=== PATIENT | female | born 1960 | race Caucasian/White ===

== ENCOUNTER → 2020-11-11 03:14 | Outpatient (CLI) | payer OTHER, SELFPAY ==
[2020-11-11 16:17] LABS: SARS-CoV-2 RNA PCR Negative
== END ==
PROVIDERS: PCP Family Medicine; Visit Provider Urology
DX: Z01.812 Encounter for preprocedural laboratory examination (principal); Z20.822 Contact with and (suspected) exposure to COVID-19
CPT/HCPCS: C9803; U0003; U0005

== ENCOUNTER 2020-11-11 07:37 | Outpatient (CLI) | payer OTHER, SELFPAY ==
[2020-11-11 08:32] LABS: INR 0.9
[2020-11-11 08:33] LABS: Partial Thromboplastin Time 28.9 SECONDS (22.3-36.8)
--- NOTE | 2020-11-11 13:30 | ECG_ITS ---
Measurements Intervals Meredith Rate: 66 P: 63 AK: 144 QRS: 31 QRSD: 94 T: 31 QT: 354 QTc: 371 Interpretive Statements SINUS RHYTHM BASELINE ARTIFACT- I, II, III, AVR, AVL, AVF NORMAL ECG Electronically Signed On 11-11-2020 8:22:44 CDT by Jaswinder Fraser D.O.
== END 2020-11-11 07:38 | disposition home or self-care (01) ==
LOC: ANHSURGERY 07:41
PROVIDERS: PCP Family Medicine; Visit Provider Urology
DX: N20.1 Calculus of ureter (principal); I10 Essential (primary) hypertension; Z01.818 Encounter for other preprocedural examination
CPT/HCPCS: 36415; 85610; 85730; 93005

== ENCOUNTER 2020-11-13 04:02 | Day surgery (SDC) | payer OTHER, SELFPAY ==
[2020-11-10 14:37] VITALS: BMI 25.2
--- NOTE | 2020-11-12 12:36 | WPDANESEPPF ---
Anes - Initial Pre Proc Eval Procedure: Operation Date: 11/13/20 12:30 Proposed Procedures p Right Extracorporeal Shock Wave Lithotripsy - Alfa Merrill MD Date/Time: 11/12/20 12:36 Surgeon: Alfa Merrill MD Pre Op Diagnosis: Right UPJ stone Patient Data Age: 60 Gender: F Height: 1.61 m Weight: 65.77 kg Allergies Allergy/AdvReac Type Severity Reaction Status Date / Time indomethacin AdvReac Severe Migraine Verified 11/13/20 10:22 Home Medications Medication Instructions Recorded Confirmed Type levothyroxine 75 mcg PO DAILY 11/10/20 11/13/20 History metoprolol tartrate 25 mg PO DAILY 11/10/20 11/13/20 History multivitamin 1 tablet PO DAILY 11/10/20 11/13/20 History biotin 10,000 mcg PO DAILY 11/13/20 11/13/20 History calcium carbonate-vitamin D3 1 tablet PO DAILY 11/13/20 11/13/20 History [Calcium with Vitamin D] lutein 20 mg PO DAILY 11/13/20 11/13/20 History magnesium 1 tablet PO DAILY 11/13/20 11/13/20 History potassium 75 mg PO DAILY 11/13/20 11/13/20 History Patient hx anesthesia problems: post op nausea/vomiting Family hx anesthesia problems: none PMFSH Past Medical History Medical History (Updated 11/12/20 @ 12:36 by Zoran Bah DO) Hypertension PONV (postoperative nausea and vomiting) Renal stones Rheumatoid arthritis Surgical History Surgical History (Updated 11/12/20 @ 12:36 by Zoran Bah DO) History of appendectomy Social History Social History Smoking status: Never smoker Alcohol intake: current Alcohol use details: 4/YEAR Substance use: never Substance use type: does not use Living arrangements: with family Spiritual care concerns: No Anes - Eval Final PreProcedure Day of Procedure 11/12/20 12:36 Patient weight: overweight Heart: regular rate and rhythm Lungs: clear to auscultation and normal air movement Airway: Mallampati scale class II Neurological: alert and oriented Last oral intake: >/= 8 hours ASA classification: III Emergent: no Anesthetic plan: proceed Anesthesia type and monitoring: general LMA and standard monitoring Informed Consent: The patient's anesthetic plan and its attendant risks and benefits were discussed with the patient/family/POA. Questions were solicited and answers provided to the satisfaction of the patient/family/POA.
[2020-11-13] VITALS (8 sets, daily range): BP systolic 110–160; BP diastolic 65–80; PULSE 61–86; RESP 10–20; TEMP 36.5–36.7; O2SAT 98–100
--- NOTE | ~2020-11-13 | XR_ITS ---
EXAMINATION: XR abdomen/kub 1V DATE: 11/13/2020 10:07 INDICATION: Right kidney stone. TECHNIQUE: A supine view of the abdomen on 2 radiographs was obtained. COMPARISON: Abdomen radiographs 03/15/2013 FINDINGS: There are no dilated loops of bowel. There are phleboliths in the pelvis. There are at leas t 5 stones in right kidney measuring up to 10 mm. IMPRESSION: 1. Right kidney stones. Reviewed, dictated and finalized at location A. IMPRESSION: 1. Right kidney stones.
--- NOTE | 2020-11-13 07:14 | WPDHPUPDATE1 ---
History and Physical Update Update Date/Time: 11/13/20 07:14 History and Physical has been reviewed, including an updated exam of the patient. There are NO changes in the patient's condition. Risks, benefits, and alternatives have been discussed and questions answered. Patient agrees to proceed with procedure.
[2020-11-13] MEDS: LACTATED RINGERS 1,000 ML 30 ML IV CONT ×2 (11:30→14:14)
[2020-11-13] MEDS: SCOPOLAMINE 1.5 MG PATCH TRANSDERM (12:18)
[2020-11-13] MEDS: FAMOTIDINE 20 MG/2 ML VIAL IV PUSH (12:18)
[2020-11-13] MEDS: ceFAZolin 2 GM/D5W 50 ML 2 GM/50 ML BAG IVPB (13:19)
--- NOTE | 2020-11-13 13:41 | P.OP_ITS ---
Procedure Note - Detailed Date of procedure: 11/13/20 Pre-op diagnosis: Right kidney stones Post-op diagnosis: same Procedure performed: Right ESWL Description of procedure: The patient was brought to the operative suite where she was placed in the supine position on the Dornier lithotripsy table. The focal point of the lithotripter was first placed at a 8mm right renal pelvic/lower pole calculus. A total of 2000 shocks were delivered at a power setting of 4 to that stone. An additional 500 shocks was given to a smaller stone in the right upper pole. There appeared to be good fragmentation of the stones. The patient tolerated the procedure well and was taken to the recovery room in good condition. Anesthesia: GLMA Surgeon: Alfa Merrill MD Asset Protection Associate: None Estimated blood loss (mL): 0 Drains: No Packing: No Pathology: none sent Complications: No immediate complications Condition: stable Disposition: PACU
== END 2020-11-13 16:00 | disposition home or self-care (01) ==
PROVIDERS: PCP Family Medicine; Visit Provider Urology
PROC: (CPT 50590; principal; 2020-11-13 12:30)
DX: N20.0 Calculus of kidney (principal); I10 Essential (primary) hypertension; M06.9 Rheumatoid arthritis, unspecified
CPT/HCPCS: 50590; 36415; 74018; 85610; 85730; 93005; A9270; J0690; J1100; J2250; J2405; J2704; J3010; J7120

== ENCOUNTER → 2020-11-17 13:00 | Outpatient (CLI) | payer OTHER, SELFPAY ==
--- NOTE | ~2020-11-17 | XR_ITS ---
XR abdomen/kub 1V 11/17/2020 13:23 INDICATION: Ureteral stone TECHNIQUE: KUB COMPARISON: 11/13/2020 FINDINGS: Bowel gas pattern is normal. There is no evidence of free air, mass, organomegaly, ascites or obstruction. No abnormal calculi are seen. The bones appear intact. Lung bases are unremarkable . There is scoliosis. IMPRESSION: 1: No acute abdominal abnormality identified. Reviewed, dictated and finalized at location A.
== END ==
PROVIDERS: PCP Family Medicine; Visit Provider Urology
DX: N20.1 Calculus of ureter (principal)
CPT/HCPCS: 74018